=== PATIENT | male | born 1975 | race Caucasian/White ===

== ENCOUNTER 2018-09-09 12:55 | Inpatient (IN) ==
[2018-09-09 13:41] LABS: BASO# 0.02 X1000 (0.0-0.2); BASO% 0.1 % (0.0-0.8); EOS# 0.01 X1000 (0.0-0.7); HEMATOCRIT 52.3 % (42.0-52.0); HEMOGLOBIN 18.1 g/dL (14.0-18.0); IMM GRAN# 0.06 X1000 (0.0-0.04); IMM GRAN% 0.3 % (0.0-0.5); LYMPH# 0.99 X1000 (1.2-3.4); LYMPH% 4.9 % (20.5-51.1); MCH 30.5 PG (27-31); MCHC 34.6 g/dL (33-37); MCV 88.2 FL (81-99); MONO# 0.93 X1000 (0.11-0.59); MONO% 4.6 % (1.7-9.3); MPV 10.3 FL (7.4-10.4); NEUT# 18.09 X1000 (1.4-6.5); NEUT% 90.1 % (42.2-75.2); PLT 324 X1000 (130-400); RBC 5.93 XMIL (4.7-6.1); RDW 12.6 % (11.5-14.5)
--- NOTE | 2018-09-09 13:42 | PROVIDER DOCUMENTATION ---
HPI-General Adult - General Chief Complaint: Heat Related Stated Complaint: POSS HEAT RELATED Time Seen by Provider: 09/09/18 13:19 Source: patient Allergies/Adverse Reactions: Patient Allergies Allergy/AdvReac Type Severity Reaction Status Date / Time No Known Allergies Allergy Verified 06/18/16 12:29 Home Medications: Home Medication List Medication Instructions Recorded Confirmed Last Taken Type Methadone HCl 90 mg PO DAILY 05/11/14 06/18/16 06/18/16 05:30 History Cyclobenzaprine [Flexeril] 10 mg PO TID #20 tablet 06/18/16 Unknown Rx Meloxicam [Mobic] 7.5 mg PO DAILY PRN PRN #15 tablet 06/18/16 Unknown Rx - History of Present Illness -Gen Adult Nature of Presenting Problems: Pt. is 42 yom that presents with c/o dehydration and getting to hot while working in the yard. Pt. reports he has been drinking water but isn't sure if it's enough. He reports he was nauseated but isn't at time of exam. He denies any other complaints. Location of Pain/Injury: reports: none. denies: head, face, mouth, neck, chest, upper extremity, hand(s), abdomen, back, pelvis, genitalia, lower extremity, feet, upper body, lower body, generalized, other Pain Radiation: reports: no radiation. denies: arm(s), back, buttocks, chest, epigastric, feet, groin, jaw, flank (L), legs (lower), LLQ, LUQ, neck, periumbilical, flank (R), RLQ, RUQ, shoulder(s), scapula, scrotal, sternal notch, suprapubic, legs (upper), urethral, vaginal, other Quality of Pain: reports: none. denies: aching, pressure, sharp, throbbing, tightness Severity: reports: mild. denies: moderate, severe Onset/Duration: reports: abrupt, just prior to arrival Timing: reports: still present. denies: improving, constant, getting worse Context/Activities at Onset: reports: moderate activity, recent physical stress. denies: none, light activity, vigorous activity, recent emotional stress, recent trauma history, possible bad food, cold exposure, eating, out of country travel, rest, sleep, sexual activity, other Modifying Factors: improves with: nothing Associated Symptoms: reports: nausea. denies: denies symptoms, anxiety, arm pain, back/neck pain, chest pain, constipation, cough, diaphoresis, diarrhea, dizziness, EENT symptoms, fatigue, fever/chills, genitourinary problems, headaches, heartburn, joint pain, loss of appetite, malaise, muscle aches, sinus congestion/drainage, rash, seizure, shortness of breath, sensory/motor loss, pain with inspiration, swelling/mass in abdomen, syncope, vomiting, weakness, trouble walking, other Similar Symptoms Previously?: No Recently seen or treated by another doctor?: No Review of Systems - Adult - REVIEW OF SYSTEMS - ADULT Constitutional: reports: no symptoms reported Eyes: reports: no symptoms reported Ears, Nose, Mouth & Throat: reports: no symptoms reported Cardiovascular: reports: no symptoms reported Respiratory: reports: no symptoms reported Gastrointestinal: reports: see HPI, nausea. denies: hematemesis, diarrhea, vomiting Genitourinary: reports: no symptoms reported Musculoskeletal: reports: no symptoms reported Integumentary: reports: no symptoms reported Neurological: reports: no symptoms reported Psychiatric: reports: no symptoms reported Past History - Adult - PAST MEDICAL HISTORY-ADULT Review of Records: reports: Old Records Reviewed, Nursing Assessment Review, Med ications Reviewed, Social history reviewed & non-contributory. Major Childhood Illnesses: reports: denies history Cardiovascular: reports: denies history Respiratory: reports: denies history Gastrointestinal: reports: denies history Obstetrical/Gynecological: reports: denies history Genitourinary: reports: denies history Musculoskeletal: reports: denies history Neurological: reports: denies history Endocrine/Immune: reports: denies history Other Conditions: reports: denies history - PRIOR SURGERIES/PROCEDURES Surgical/Procedure History: reports: reviewed, not pertinent - IMMUNIZATION STATUS Childhood Immunizations: See Nurse Assessment Flu Vaccine: See Nurse Assessment - FAMILY HISTORY Family History: reviewed, not pertinent - SOCIAL HISTORY Smoking: cigarettes, greater than 1 pack/day Provider spent 3-5 mins advising pt. on dangers of tobacco.: Discussed manners to quit use, and f/u contacts for add'l counseling. Physical Exam-General - PHYSICAL EXAM-ADULT Initial Vital Signs Reviewed: Yes - CONSTITUTIONAL General Appearance: alert, no apparent distress, thin. negative: anxious, slow to respond, obtunded, combative - EYES Eyes: PERRL/EOMI, pink conjunctivae - HEAD, EARS, NOSE, MOUTH & THROAT HENMT: normocephalic/atraumatic, moist mucous membranes - NECK Neck: non-tender, full range of motion, supple, normal inspection - RESPIRATORY Respiratory: lungs clear, normal breath sounds - CARDIOVASCULAR Cardiovascular: regular rate, rhythm, no edema, tachycardia - GASTROINTESTINAL (ABDOMEN) Abdominal Exam: normal bowel sounds, non tender, soft - LYMPHATIC Lymphatic: no adenopathy. negative: axilla node tender, cervical node tenderness - MUSCULOSKELETAL Back Exam: normal inspection, no CVA tenderness, no vertebral tenderness Extremity: normal range of motion, non-tender, normal gait, normal inspection Peripheral Pulses: radial (R): 2+, radial (L): 2+ - SKIN Integumentary: normal color, normal turgor, warm/dry - NEUROLOGIC Neurologic: grossly normal, no motor/sensory deficits - PSYCHIATRIC Psych/Mental Status: normal mood/affect, normal thought content, normal thought process, oriented x 3 Progress - PLAN OF CARE/RESULTS Progress/Plan/Lab Results: Vital Signs - 8 hr 09/09/18 13:04 Temperature 96.4 F L Pulse Rate 113 H Respiratory Rate 20 Blood Pressure 107/60 O2 Sat by Pulse Oximetry 95 Orders Category Date Time Status Saline Loc NOW Care 09/09/18 13:19 Active CBC WITH ELECTRONIC DIFF [HEME] Stat Lab 09/09/18 13:25 Results CK PROFILE [SP CHEM] Stat Lab 09/09/18 13:25 Received COMPREHENSIVE METABOLIC PANEL [CHEM] Stat Lab 09/09/18 13:25 Received URINALYSIS W/POSS RFLX CULT [URINALYSIS] Stat Lab 09/09/18 13:19 Uncollected URINE DRUG SCREEN Stat Lab 09/09/18 13:20 Uncollected Result Diagrams: 09/09/18 13:25 09/09/18 13:25 - XRAY 1 XRAY Study: Chest ([facility] [address], [address], [place] [address] Department of Imaging Patient: WALLY BIGGS Date: 09/09/18MR#: [id number] : 1975[facility]M [id number] Age/Sex: 42/MRoom/Bed: Loc: ED Ordering Physician: Gricelda Huerta Family Physician: None,PCP Reason for Procedure: cough ___ Signed EXAM: CHEST-2 VIEWS INDICATION: cough TECHNIQUE: 2 views COMPARISON: 02/09/2015 FINDINGS: The lungs are grossly clear. There is no discrete pleural fluid collection or pneumothorax. The cardiomediastinal silhouette and central vasculature are grossly unremarkable. IMPRESSION: No e vidence of acute pathology by plain radiograph. Electronically signed by Jose Ellis 09/09/2018 4:25 PM 09/09/18 1625 Interpreting Physician: Jose Ellis MD Dictated Date/Time: 09/09/18 1624 cc: Gricelda Huerta; None,PCP) XRAY Interpretation: See note - CONSULTS/PCP/HOSPITALIST Notification #1 *Consult/PCP/Hospitalist*: Tania BAXTER for Dr. Mckinney Time Discussed: 17:48 Reason/Comments: Admission Consult Disposition: Will see in ED, Admit Departure - Departure Date of Disposition Decision: 09/09/18 Time of Disposition Decision: 17:15 DIAGNOSIS: Renal insufficiency, Dehydration, Hyperglycemia, Elevated liver enzymes Leukocytosis Qualifiers: Leukocytosis type: unspecified Qualified Code(s): D72.829 - Elevated white blood cell count, unspecified Disposition: ADMITTED INPATIENT 09 Certified Medical Emergency: Emergent Condition: Stable Referrals and Follow-Ups: None,PCP [Primary Care Provider] - Discharge Education: Steps to Quit Smoking, [id number] - Critical Care Note This patient required my direct & personal management of CC.: No Attestation - Physician/ DAVID Attestation Patient care was provided by Advanced Practice Provider:: Yes Advanced Practice Provider:: Gricelda Huerta Advanced Practice Provider documentation review:: The Mid-level provider documentation, treatment plan and medical decision making was reviewed by the physician who agrees with all treatment and medical decision making by the MLP. The physician spent face to face time with patient:: No Advanced Practice Provider documentation review:: Supervising physician onsite and consulted in the evaluation and care of this patient. The physician did not have a face to face encounter with the patient.
[2018-09-09 14:14] LABS: ALB/GLOB RATIO 1.6; ALBUMIN 5.8 g/dL (3.5-5.0); CALCIUM 11.3 mg/dL (8.8-10.2); CREATININE 2.5 mg/dL (0.7-1.2); POTASSIUM 3.9 mmol/L (3.5-5.1); TOTAL BILIRUBIN 0.84 mg/dL (0.20-1.00); TOTAL PROTEIN 9.5 g/dL (6.3-8.3)
[2018-09-09 14:38] LABS: CK INDEX 0.6 (0.0-2.5); CK-MB 3.52 ng/mL (0.0-5.0)
[2018-09-09 15:59] LABS: URINE SOURCE CLEAN CATCH
[2018-09-09 16:04] LABS: BILIRUBIN URINE SMALL (NEGATIVE); BLOOD URINE SMALL (NEGATIVE); COLOR YELLOW; GLUCOSE URINE TRACE mg/dL (NEGATIVE); KETONE URINE TRACE mg/dL (NEGATIVE); LEUKOCYTES URINE NEGATIVE (NEGATIVE); NITRITE URINE NEGATIVE (NEGATIVE); PH URINE 5.5; PROTEIN URINE 100 mg/dL (NEGATIVE); SP GRAVITY URINE 1.027; TURBIDITY URINE HAZY (CLEAR); UROBILINOGEN URINE 2 mg/dL (NORMAL)
[2018-09-09 16:06] LABS: UR EPITHELIAL CELLS <10 /HPF (<10); URINE BACTERIA NEGATIVE /HPF; URINE RBC <10 /HPF (<10); URINE WBC <10 /HPF (<10)
[2018-09-09 16:20] LABS: UR AMPHETAMINES QUAL PRESUMPTIVE POSITIVE (NONE DETECT); UR BARBITUATES QUAL NONE DETECTED (NONE DETECT); UR BENZODIAZEPIN QUAL NONE DETECTED (NONE DETECT); UR CANNABINOIDS QUAL NONE DETECTED (NONE DETECT); UR COCAINE QUAL NONE DETECTED (NONE DETECT); UR METHADONE QUAL NONE DETECTED (NONE DETECT); UR OPIATES QUAL NONE DETECTED (NONE DETECT); UR OXYCODONE QUAL NONE DETECTED (NONE DETECT); UR PCP QUAL NONE DETECTED (NONE DETECT)
--- NOTE | 2018-09-09 16:27 | Diag Imaging Result Doc PS360 ---
EXAM: CHEST-2 VIEWS INDICATION: cough TECHNIQUE: 2 views COMPARISON: 02/09/2015 FINDINGS: The lungs are grossly clear. There is no discrete pleural fluid collection or pneumothorax. The cardiomediastinal silhouette and central vasculature are grossly unremarkable. IMPRESSION: No evidence of acute pathology by plain radiograph. Electronically signed by Jose Ellis 09/09/2018 4:25 PM
[2018-09-09 16:38] LABS: URINE CASTS NONE SEEN; URINE CRYSTALS URIC ACID PRESENT; URINE YEAST NONE SEEN
[2018-09-09] MEDS ORDERED: NS 1,000 ML IV ONE ×2 (20:38→20:39)
--- NOTE | 2018-09-09 21:08 | HISTORY AND PHYSICAL ---
HISTORY OF PRESENT ILLNESS: Briefly, this is a 42-year-old gentleman, no real medical problems, who came in with dehydration. 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 He says he has been drinking water, but his urine output has diminished, sometimes non-existence. He is nauseated but no emesis, although I think when he was getting his admission vitals he had nausea and emesis. He says a week ago or so he had an episode where he became acutely disoriented and balanced. He denies any oral supplements, creatinine, herbal OTC supplements, muscle building supplements, [id number] herbal medications, but he does take amphetamine. Workup in the ER: Creatinine is 2.5. White count is 20. UDS showed amphetamines. PAST MEDICAL HISTORY: Denies. PAST SURGICAL HISTORY: He has had an inguinal repair. Possibly he is on methadone, I am not sure. FAMILY HISTORY: Reviewed. Noncontributory. SOCIAL HISTORY: A half a pack a day smoker. He denies alcohol. The amphetamine is very intermittent. ALLERGIES: No known drug allergies. MEDICATIONS: Mobic, Flexeril. I do not have a medication list. REVIEW OF SYSTEMS: No weight loss. No chest pain. No dyspnea. No nausea, vomiting, diarrhea. No hematochezia. No melena. Negative. PHYSICAL EXAMINATION: GENERAL: A well-developed male in no acute distress. HEENT: Head exam was normocephalic, atraumatic. Eye exam: Pupils equal, round, reactive to light. Extraocular movements were intact. Ears, nose, and throat exam: Moist mucous membranes. Sclerae anicteric. CARDIOVASCULAR: Regular rate and rhythm. PULMONARY: Bilateral breath sounds. Clear to auscultation. GASTROINTESTINAL: Soft, nontender, nondistended. Bowel sounds are positive. EXTREMITIES: No clubbing or cyanosis. LYMPHATICS: No peripheral edema. NEUROLOGIC: Nonfocal. MUSCULOSKELETAL: 4/5 in all four extremities. LABORATORY DATA: White count is 20,000, hemoglobin and hematocrit 18 and 52 consistent with hemoconcentration. Creatinine purely elevated at 2.5 with a calcium of 11.3, an AST and ALT of 45 and 46. Urine drug screen positive for amphetamine which he admits to. Chest x-ray was clear. ASSESSMENT: This is a 42-year-old male with no major pathologies who comes in from home with heat exhaustion, heat stroke. PROBLEM LIST: 1. Heat exhaustion. He likely has some heat exhaustion, possibly early rhabdomyolysis and acute kidney injury. We will continue vigorous hydration and follow. 2. Acute kidney injury, may be multifactorial. Check urine electrolytes. Get renal ultrasound. Continue hydration and monitor. 3. Elevated liver enzymes. We will screen for hepatitis. Repeat levels tomorrow and monitor closely. 4. Leukocytosis may just be purely reactive. At this point I am not starting any antibiotics. We will continue to monitor. There is not clearly a source of infection. This is a service admission. cc: Tristan Mckinney MD MTDD
[2018-09-09] MEDS ORDERED: ZOFRAN IV PRN (21:57)
[2018-09-09] MEDS ORDERED: TYLENOL PO PRN (21:57)
[2018-09-10] MEDS: NS 1,000 ML IV SCH ×2 (00:20→11:20)
--- NOTE | 2018-09-10 08:49 | Diag Imaging Result Doc PS360 ---
US ABDOMEN-COMPLETE - 09/10/2018 INDICATION: elevated liver enzymes COMPARISON: None FINDINGS: The liver is mildly fatty. No liver masses. No biliary dilation. Common bile duct measures 4 mm. Spleen size is 10.5 cm. the spleen is normal. The gallbladder, pancreas, and both kidneys are normal. Aorta, IVC, and main portal vein are patent. IMPRESSION: Mild fatty liver. Electronically signed by Michael Lakhani 09/10/2018 8:46 AM
[2018-09-10 08:52] LABS: BASO# 0.03 X1000 (0.0-0.2); BASO% 0.3 % (0.0-0.8); EOS# 0.17 X1000 (0.0-0.7); HEMATOCRIT 43.6 % (42.0-52.0); HEMOGLOBIN 14.9 g/dL (14.0-18.0); LYMPH# 2.36 X1000 (1.2-3.4); LYMPH% 27.3 % (20.5-51.1); MCH 30.9 PG (27-31); MCHC 34.2 g/dL (33-37); MCV 90.5 FL (81-99); MONO# 1.18 X1000 (0.11-0.59); MONO% 13.6 % (1.7-9.3); MPV 10.6 FL (7.4-10.4); NEUT# 4.92 X1000 (1.4-6.5); NEUT% 56.8 % (42.2-75.2); PLT 257 X1000 (130-400); RBC 4.82 XMIL (4.7-6.1); RDW 12.6 % (11.5-14.5); WBC 8.66 X1000 (4.8-10.8)
[2018-09-10 09:06] LABS: CALCIUM 8.9 mg/dL (8.8-10.2); CREATININE 1.4 mg/dL (0.7-1.2); POTASSIUM 3.2 mmol/L (3.5-5.1)
[2018-09-10] MEDS ORDERED: NS 1,000 ML IV ONE (10:16)
[2018-09-10 14:29] VITALS: BP 114/64
[2018-09-10 15:56] LABS: UR CREAT RANDOM 104.3 mg/dL (14-26); UR PROT RANDOM 6.8 mg/dL
[2018-09-10 16:29] LABS: AGAP 7; BUN 19 mg/dL (8-22); CALCIUM 8.9 mg/dL (8.8-10.2); CHLORIDE 103 mmol/L (98-107); CK TOTAL 597 U/L (24-204); COSMO 280; CREATININE 1.1 mg/dL (0.7-1.2); ESTIMATED GFR > 60; GLUCOSE 102 mg/dL (70-104); POTASSIUM 4.3 mmol/L (3.5-5.1); SODIUM 139 mmol/L (136-145); TCO2 29 mmol/L (25-35)
--- NOTE | 2018-09-11 07:18 | DISCHARGE SUMMARY ---
ADMISSION DATE: 09/10/2018 DISCHARGE DATE: 09/10/2018 ADMIT DIAGNOSES: 1. Dehydration, heat stroke, heat exhaustion. 2. Acute kidney injury. 3. Elevated liver enzymes. HISTORY AND HOSPITAL COURSE: Briefly, this is a 42-year-old male with no major history, presenting with weakness, muscle pains. He has been working in the heat significantly outside, doing manual labor. His reports that he has been pretty sick with that, and he came in for evaluation. His creatinine initially was 2.5, his CPK was 558, calcium 11.3. He was admitted for treatment. His urine electrolytes were consistent with prerenal azotemia. Urine sodium was 17. After hydration, his white count went down to 8, hemoglobin and hematocrit 14 and 43. His creatinine went down initially to 1.4. CPK was still up at 774, so we continued hydration. Calcium went down to 8.9, potassium 3.2, and climbed to 4.3. He was tolerating p.o. without difficulty. He was advised on staying well hydrated, and he will be discharged in stable condition. Follow up with PCP. cc: Tristan Mckinney MD
== END 2018-09-10 18:29 | disposition home or self-care (01) | DRG 923 ==
LOC: ED 12:55 → 4N 12:55 → SUATTDRO 20:54 → 4N 21:30
PROVIDERS: ATTEND Internal Medicine
CPT/HCPCS: 71020; 71046; 76700; 80048; 80053; 80101; 80301; 80307; 80320; 80324; 80345; 80346; 80353; 80358; 80361; 80365; 81001; 82055; 82550; 82553; 82570; 83992; 84156; 84300; 85025; G0431; G0434; G0479; G0480; G6040; J7030